=== PATIENT | female | born 1995 | race Caucasian/White ===

== ENCOUNTER 2017-08-24 09:05 | Emergency (ER) | payer BC ==
[~2017-08-24] VITALS: Ht 162.6 cm; Wt 90.5 kg
[2017-08-24 13:48] VITALS: BP 103/68
== END 2017-08-24 13:50 | disposition home or self-care (01) ==
LOC: EME 09:05
DX: O26.892 Other specified pregnancy related conditions, second trimester (principal); M54.5 Low back pain; W00.0XXA Fall on same level due to ice and snow, initial encounter; Z3A.24 24 weeks gestation of pregnancy; Z88.1 Allergy status to other antibiotic agents
CPT/HCPCS: 76810; 99281; 99284

== ENCOUNTER 2017-12-20 17:50 | Inpatient (IN) | payer BC ==
[2017-12-20] VITALS (8 sets, daily range): BP systolic 111–143; BP diastolic 56–74
[~2017-12-20] VITALS: Ht 162.6 cm; Wt 99.7 kg
[2017-12-20] MEDS ORDERED: PRENATAL TABLE1 EAC3 PO (18:55)
[2017-12-20 19:22] LABS: BASOPHIL (%) 0.3 % (0-1); EOSINOPHIL (%) 0.6 % (0-5); EOSINOPHIL COUNT 0.1 K/uL (0-0.3); HEMATOCRIT 34.9 % (36.0-46.0); HEMOGLOBIN 11.5 G/DL (11.9-15.5); LYMPHOCYTE (%) 14.8 % (15-42); LYMPHOCYTE COUNT 1.5 K/uL (1.0-2.8); MCV 91.1 FL (83-99); MONOCYTE (%) 5.6 % (3-12); MONOCYTE COUNT 0.6 K/uL (0-0.8); NEUTROPHIL (%) 77.7 % (45-76); NEUTROPHIL COUNT 7.7 K/uL (1.8-6.4); NRBC (%) 0.3 /100 WBC (0-0); PLATELET COUNT 135 K/uL (156-360); RBC DIS.WIDTH-CV 14.4 % (11.8-14.6); RBC DIS.WIDTH-SD 47.3 % (39-53); RED BLOOD COUNT 3.83 M/uL (3.80-5.20)
[2017-12-20 19:51] LABS: AMPHETAMINE NEGATIVE (500 ng/mL); BARBITURATES NEGATIVE (200 ng/mL); BENZODIAZEPINES NEGATIVE (150 ng/mL); BUPRENORPHINE NEGATIVE (10 ng/mL); COCAINE NEGATIVE (150 ng/mL); METHADONE NEGATIVE (200 ng/mL); METHAMPHETAMINE NEGATIVE (500 ng/mL); OPIATES (MORPHINE) NEGATIVE (100 ng/mL); OXYCODONE NEGATIVE (100 ng/mL); PHENCYCLIDINE NEGATIVE (25 ng/mL); PROPOXYPHENE NEGATIVE (300 ng/mL); THC CANNABINOIDS NEGATIVE (50 ng/mL); TRICYCLIC ANTIDEPRESSANTS NEGATIVE (300 ng/mL)
[2017-12-21] VITALS (47 sets, daily range): BP systolic 106–183; BP diastolic 52–84
[2017-12-21] MEDS ORDERED: PERCOCET 5/31 TABLET PO (19:10)
[2017-12-21] MEDS ORDERED: MOTRIN800 MG PO (19:10)
[2017-12-22 00:30] VITALS: BP 105/53
[2017-12-22 02:59] VITALS: BP 119/57
[2017-12-22 04:49] VITALS: BP 107/51
[2017-12-22 07:37] VITALS: BP 114/57
[2017-12-22 07:42] LABS: HEMATOCRIT 27.9 % (36.0-46.0); MCH 29.7 PG (29.0-34.0); MCHC 32.3 G/DL (30.0-36.0); MCV 92.1 FL (83-99); PLATELET COUNT 108 K/uL (156-360); RBC DIS.WIDTH-CV 14.8 % (11.8-14.6); RBC DIS.WIDTH-SD 49.3 % (39-53); WHITE BLOOD COUNT 18.7 K/uL (4.1-10.2)
[2017-12-22 07:47] LABS: RED BLOOD COUNT 3.03 M/uL (3.80-5.20)
[2017-12-22 08:06] LABS: ABS NEUTROPHIL COUNT 17.9; BAND NEUTROPHILS 25.2 % (0-8.0); EOSINOPHIL ABS CT 0; LYMPHOCYTES 1.8 % (15.0-45.0); MONOCYTES 2.6 % (0-9.0); PLAT.SUFFICIENCY DECREASED; SEG.NEUTROPHILS 70.4 % (46.0-76.0)
[2017-12-22 10:35] VITALS: BP 114/56
[2017-12-22 14:35] VITALS: BP 113/56
[2017-12-23 23:35] VITALS: BP 111/55
[2017-12-24 07:40] VITALS: BP 124/81
== END 2017-12-24 12:56 | disposition home or self-care (01) | DRG 766 ==
LOC: LDRP-OP 17:50 → 2WEST 17:51 → LDRP-OP 01-15 10:09
PROVIDERS: Midwife; Obstetrics & Gynecology
DX: O62.0 Primary inadequate contractions (principal); O63.0 Prolonged first stage (of labor); O48.0 Post-term pregnancy; O99.214 Obesity complicating childbirth; E66.9 Obesity, unspecified; Z68.30 Body mass index [BMI] 30.0-30.9, adult; Z3A.41 41 weeks gestation of pregnancy; Z37.0 Single live birth
CPT/HCPCS: 85025; C1755; G0378; J0595; J0690; J1580; J2274; J2795; J3010; J7120